=== PATIENT | male | born 1970 | race Two or more races ===

== ENCOUNTER 2022-03-31 11:35 | Emergency (ER) | payer MEDICAID, OTHER ==
[~2022-03-31] VITALS: Ht 177.8 cm; Wt 95.0 kg
[2022-03-31 14:08] VITALS: BP 120/64
[2022-03-31] MEDS ORDERED: ACETAMINOPHEN 325 MG TAB PO ONE (14:30)
[2022-03-31] MEDS ORDERED: IBUP800T27 PO (15:56)
== END 2022-03-31 15:57 | disposition home or self-care (01) ==
LOC: ER 11:35
DX: S80.212A Abrasion, left knee, initial encounter (principal); S80.211A Abrasion, right knee, initial encounter; S50.812A Abrasion of left forearm, initial encounter; S60.512A Abrasion of left hand, initial encounter; S60.511A Abrasion of right hand, initial encounter; F17.210 Nicotine dependence, cigarettes, uncomplicated; V28.0XXA Motorcycle driver injured in noncollision transport accident in nontraffic accident, initial encounter; Y93.89 Activity, other specified; Y92.89 Other specified places as the place of occurrence of the external cause; Y99.8 Other external cause status
CPT/HCPCS: 29505; 73562